=== PATIENT | male | born 1975 | race Caucasian/White ===

== ENCOUNTER 2018-03-18 17:30 | Emergency (ER) | payer BC, OTHER ==
[~2018-03-18] VITALS: Ht 175.3 cm; Wt 127.2 kg
[~2018-03-18 17:30] MED LIST: ADD/10 PO; ADVIN10/60 INH; ALBU1AER9 INH; IBUP-1050 PO; LORA-741 PO; [UNRECOGNIZED DRUG - OTHER] PO
[2018-03-18 17:34] VITALS: TEMP 36.8; Ht 175.3 cm; Wt 127.2 kg
[2018-03-18] MEDS ORDERED: ALBU18002 INH (17:49)
[2018-03-18] MEDS ORDERED: AMPH20TA2 PO (17:49)
[2018-03-18] MEDS ORDERED: CYCLOBENZAPRINE HCL 10 MG TAB PO STA (18:02)
[2018-03-18] MEDS ORDERED: HYDROmorphone INJ 1 MG/ML SYR IM ONE (18:15)
[2018-03-18] MEDS ORDERED: KETOROLAC TROMETHAMINE 60 MG/2 ML VIAL IM ONE (18:15)
--- NOTE | 2018-03-18 18:31 | EMERGENCY ROOM VISIT NOTE ---
History First contact with patient: 17:45 Chief Complaint: BACK PAIN Stated Complaint: LOWER BACK ISSUES History of Present Illness The patient is a 42 year old male who presents to the Emergency Room with complaints of low back pain since yesterday. The patient reports going to the gym in the morning. He did tricep extensions. He does not feel any acute injury at that time. After he went home, he started developing pain in his low back. He denies any radiation down his legs. No weakness in his legs. No numbness or tingling into the legs or groin area. No urinary or bowel incontinence. No urinary discomfort. He has not tried anything at home for pain. The patient is concerned because he had low back surgery done in 2011. Review of Systems 10 system review performed and negative unless noted in HPI or below Past Medical/Surgical History Asthma Social History Smoking Status: Never Smoker Marital Status: Occupation Status: employed Current/Historical Medications Scheduled Amphetamine-Dextroamphetamine 20MG (Adderall 20MG), 20 MG PO BID Cyclobenzaprine Hcl (Flexeril), 10 MG PO TID Prednisone (Prednisone), 50 MG PO DAILY Scheduled PRN Albuterol Sulfate (Proair Respiclick), 1-2 PUFFS INH Q4H PRN for SOB/Wheezing Oxycodone/Acetaminophen 5MG/325MG (Percocet 5MG/325MG), 1-2 TABS PO Q4H PRN for Pain Physical Exam Vital Signs Date Time Temp Pulse Resp B/P (MAP) Pulse Ox O2 Delivery O2 Flow Rate FiO2 03/18/18 19:42 90 20 129/87 96 03/18/18 17:34 36.8 95 18 140/77 91 Room Air Physical Exam VITALS: Vitals are noted on the nurse's note and reviewed by myself. Vital signs stable. GENERAL: 42-year-old male, in mild discomfort,, SKIN: The skin was without rashes, erythema, edema, or bruising HEAD: Normocephalic atraumatic. EYES: Conjunctivae without injection, sclerae without icterus. Extraocular movements intact. NECK: Supple without nuchal rigidity. Cervical spine is nontender. No JVD. HEART: Regular rate and rhythm without murmurs gallops or rubs. LUNGS: Clear to auscultation bilaterally without wheezes, rales or rhonchi. No accessory muscle use. MUSCULOSKELETAL: Mild tenderness over the lumbar spinous processes. There is a muscle spasm in the paraspinous muscles bilaterally in this area. No tenderness over the SI joint. Hamstring and quadriceps strength 5/5 bilaterally. Sensation in the lower extremities is intact. Distal pulses intact. Strength 5/5 throughout. NEURO: Patient was alert and oriented to person place and time. Normal sensation to touch. No focal neurological deficits. Medical Decision & Procedures ER Provider Diagnostic Interpretation: Lumbar spine x-ray IMPRESSION: Mild degenerative changes of the thoracolumbar junction, which are unchanged since 2011. Mild anterior vertebral body height loss of T12 and L1 is unchanged and may also represent degenerative change. No acute osseous injury or radiographic evidence of neural foraminal narrowing. Electronically signed by: Benjamin Garg M.D. 03/18/2018 7:09 PM Dictated Date/Time: 03/18/2018 7:06 PM Medications Administered Medications (Trade) Dose Ordered Sig/Luis Miguel Route Start Time Stop Time Status Last Admin Dose Admin Hydromorphone HCl (Dilaudid Inj) 1 mg ONE ONCE IM 03/18/18 18:15 03/18/18 18:16 DC 03/18/18 18:25 1 MG Ketorolac Tromethamine (Toradol Inj) 60 mg ONE ONCE IM 03/18/18 18:15 03/18/18 18:16 DC 03/18/18 18:26 60 MG Cyclobenzaprine HCl (Flexeril Tab) 10 mg NOW STAT PO 03/18/18 18:02 03/18/18 18:04 DC 03/18/18 18:25 10 MG Dexamethasone Sodium Phosphate (Decadron Inj) 10 mg NOW ONCE PO 03/18/18 19:15 03/18/18 19:16 DC 03/18/18 19:40 10 MG Oxycodone/ Acetaminophen (Percocet 5/ 325MG Home Pack) 1 homepack UD ONCE PO 03/18/18 19:30 03/18/18 19:31 DC 03/18/18 19:30 1 HOMEPACK ED Course The patient was seen and examined He was medicated with Dilaudid 1 mg and Toradol 60 mg IM. He was also given Flexeril by mouth. Imaging was performed and reviewed Upon reevaluation, the patient was feeling slightly better. We discussed his workup. He voiced understanding, was comfortable being discharged home. He was given a dose of Decadron 10 mg p.o. prior to departure. Discharge instructions were reviewed, and he was discharged in good condition Medical Decision Differential diagnosis: Spine fracture, ligamentous injury, subluxation, spondylolisthesis, spondylosis, herniated disc, contusion, muscle spasm This patient is a 42-year-old male with a history of back surgery in 2011 that presents to the emergency department with low back pain after working out at the gym. On exam, he was in pain. He was neurovascularly intact. I did not suspect acute injury/cauda equina syndrome. X-rays were unchanged when compared to prior. The patient had good pain relief in the emergency department. This is likely a muscular strain. He will be treated with a short course of narcotics, muscle relaxants, steroids and NSAIDs. He will follow-up with his orthopedic surgeon if the pain does not improve in the next several days. He agrees to return to the emergency department with any new or concerning symptoms This chart was completed in part utilizing [employer] Speech Voice Recognition software. Attempts were made to minimize the grammatical errors, random word insertions, pronoun errors and incomplete sentences. Any formal questions or concerns about the content, text or information contained within the body of this dictation should be directly addressed to the provider for clarification. Medication Reconcilliation Current Medication List: was personally reviewed by me Blood Pressure Screening Patient's blood pressure: Elevated blood pressure Blood pressure disposition: Did not require urgent referral Impression Primary Impression: Strain of lumbar region Departure Information Dispostion Home / Self-Care Condition GOOD Prescriptions Prednisone (Prednisone) 50 Mg Tab 50 MG PO DAILY for 4 Days, #4 TAB Prov: Stacey Sosa PA-C 03/18/18 Cyclobenzaprine Hcl (FLEXERIL) 10 Mg Tab 10 MG PO TID for Muscle Spasms, #20 TAB Prov: Stacey Sosa PA-C 03/18/18 Oxycodone/Acetaminophen 5MG/325MG (PERCOCET 5MG/325MG) Tab 1-2 TABS PO Q4H Y for Pain, #20 TAB For Initial Treatment Prov: Stacey Sosa PA-C 03/18/18 Referrals Benjamin Elizondo M.D. (PCP) Victorino Griffiths D.O. Patient Instructions My [facility] Additional Instructions You have been evaluated in the emergency department for back pain. This is likely muscular in nature. X-rays did not show any acute injuries. Please apply ice to the area for 20 minute intervals over the next 24 hours No strenuous activity for at least 48 hours or until your back is feeling better Ibuprofen 800 mg every 8 hours for 48 hours Percocet 1-2 tabs every 4 hours for severe pain. Do not drink alcohol or drive while taking this medication. This may be taken with ibuprofen, but avoid Tylenol. Flexeril every 8 hours as needed for muscle spasm/pain. Please also do not drink alcohol or drive while taking this medication. Please take the entire course of prednisone Please follow-up with your primary care physician and/or orthopedic surgeon if the pain does not improve in the next week. Do not hesitate to return to the emergency department with any new, worsening or concerning symptoms; especially, weakness in the legs, numbness or tingling in the legs or groin, severe pain It was a pleasure participating in your care today Work Instructions Return To Work: 3 days
--- NOTE | 2018-03-18 19:10 | DIAGNOSTIC IMAGING REPORT ---
L-SPINE MIN 4 VIEWS ROUTINE CLINICAL HISTORY: 42 years-old Male presenting with LBP hx back sx in 2012. TECHNIQUE: Frontal, bilateral oblique, lateral, and coned in lateral views of the lumbar spine were obtained. COMPARISON: 06/17/2012. FINDINGS: Minimal levocurvature of the lumbar spine. No pars defect. Normal lumbar lordosis. Mild anterior vertebral body height loss of T12 and L1 is unchanged in appearance from prior. Intervertebral disc heights preserved. Mild anterior osteophytosis most notable at T12-L1. No radiographic evidence of neural foraminal narrowing allowing for overlapping structures at the level of L5-S1. No acute compression deformity or subluxation. Nonobstructive bowel gas pattern. IMPRESSION: Mild degenerative changes of the thoracolumbar junction, which are unchanged since 2012. Mild anterior vertebral body height loss of T12 and L1 is unchanged and may also represent degenerative change. No acute osseous injury or radiographic evidence of neural foraminal narrowing. Electronically signed by: Benjamin Garg M.D. 03/18/2018 7:09 PM Dictated Date/Time: 03/18/2018 7:06 PM
[2018-03-18] MEDS ORDERED: DEXAMETHASONE SOD INJ 4 MG/ML VIAL PO ONE (19:15)
[2018-03-18] MEDS ORDERED: CYCL10TA6 PO (19:25)
[2018-03-18] MEDS ORDERED: OXYC-57 PO (19:25)
[2018-03-18] MEDS ORDERED: PRED50TA PO (19:25)
[2018-03-18] MEDS ORDERED: PERCOCET HOME PACK PO ONE (19:30)
[2018-03-18 19:42] VITALS: BP 129/87; PULSE 90; O2SAT 96
== END 2018-03-18 19:43 | disposition home or self-care (01) ==
LOC: C.EDB 17:32 → C.EDD 19:43
DX: S39.012A Strain of muscle, fascia and tendon of lower back, initial encounter (principal); X50.9XXA Other and unspecified overexertion or strenuous movements or postures, initial encounter; Y93.B9 Activity, other involving muscle strengthening exercises; Y99.8 Other external cause status; J45.909 Unspecified asthma, uncomplicated